=== PATIENT | male | born 1985 | race African-American/Black ===

== ENCOUNTER 2020-05-29 18:17 | Emergency (ER) | payer SELFPAY ==
[~2020-05-29] VITALS: Ht 177.8 cm; Wt 92.0 kg
[2020-05-29 18:24] VITALS: BP 160/95
[2020-05-29] MEDS ORDERED: CEFTRIAXONE SODIUM 250 MG/VIAL IM ONE (19:30)
[2020-05-29] MEDS ORDERED: LIDOCAINE HCL 1% 20ML VIAL (Pyxis) INJ INFIL ONE (19:30)
[2020-05-29] MEDS ORDERED: AZITHROMYCIN 500 MG TABLET PO ONE (19:30)
[2020-05-29 20:44] LABS: CLARITY URINE CLOUDY (CLEAR); COLOR URINE YELLOW (YELLOW); KETONES URINE TRACE (NEGATIVE); LEUKOCYTE ESTERASE URINE 3+ (NEGATIVE); NITRITE URINE NEGATIVE (NEGATIVE); OCCULT BLOOD URINE TRACE (NEGATIVE); PROTEIN URINE 1+ (NEGATIVE); SPECIFIC GRAVITY URINE 1.031 (1.005-1.030)
== END 2020-05-29 20:05 | disposition home or self-care (01) ==
LOC: ER 18:17
DX: N34.2 Other urethritis (principal); I10 Essential (primary) hypertension; Z88.8 Allergy status to other drugs, medicaments and biological substances
CPT/HCPCS: 81003; 87081; 87086; 87491; 87591; 96372; 99283; J0696; J3490